=== PATIENT | male | born 1945 | race African-American/Black ===

== ENCOUNTER 2023-09-29 17:23 | Emergency (ER) | payer OTHER, BC ==
[2023-09-29] MEDS ORDERED: LIDOCAINE 5% TOPICAL PATCH TP ONE (17:37)
[2023-09-29] MEDS ORDERED: LIDOCAINE 5% TOPICAL PATCH ONE (17:56)
[2023-09-29 17:59] VITALS: BP 112/73; PULSE 79; RESP 18; TEMP 98.4; BMI 27.9
[2023-09-29] MEDS ORDERED: LIDOCAINE PATCH REMOVAL MC SCH (22:00)
== END 2023-09-29 21:06 | disposition home or self-care (01) ==
LOC: FER 17:23
DX: M54.50 Low back pain, unspecified (principal); M54.2 Cervicalgia; V49.40XA Driver injured in collision with unspecified motor vehicles in traffic accident, initial encounter; Y93.I9 Activity, other involving external motion
CPT/HCPCS: 70450-TC; 72125-TC; 72128-TC; 72131-TC; 99284-25

== ENCOUNTER 2025-03-03 18:58 | Emergency (ER) | payer BC, OTHER ==
[2025-03-03 19:15] VITALS: BP 126/86; PULSE 80; RESP 18; TEMP 98.6; BMI 30.1
[2025-03-03] MEDS ORDERED: DIPHTH,PERTUSS(ACELL),TET 0.5 ML DISP.SYRIN IM ONE (19:20)
[2025-03-03] MEDS: DIPHTH,PERTUSS(ACELL),TET 0.5 ML DISP.SYRIN IM ONE (19:23)
== END 2025-03-03 21:45 | disposition home or self-care (01) ==
LOC: FER 18:58
PROC: 3E0234Z Introduction of Serum, Toxoid and Vaccine into Muscle, Percutaneous Approach (ICD-10-PCS; principal; 2025-03-03)
DX: S00.31XA Abrasion of nose, initial encounter (principal); S00.81XA Abrasion of other part of head, initial encounter; Z23 Encounter for immunization; W01.0XXA Fall on same level from slipping, tripping and stumbling without subsequent striking against object, initial encounter; Y93.01 Activity, walking, marching and hiking
CPT/HCPCS: 70450-TC; 70486-TC; 90715; 99285-25